=== PATIENT | female | born 2000 | race Caucasian/White ===

== ENCOUNTER 2024-01-09 16:12 | Observation (INO) | payer MEDICAID ==
[~2024-01-09] VITALS: Ht 157.5 cm; Wt 59.0 kg
[2024-01-09 16:20] VITALS: BP 113/61; PULSE 97; RESP 18; TEMP 98
[2024-01-09] MEDS ORDERED: PRETAB PO (17:14)
== END 2024-01-09 19:10 | disposition home or self-care (01) ==
LOC: MLD 16:12
PROVIDERS: ADMIT Obstetrics & Gynecology; ATTEND Obstetrics & Gynecology
DX: O46.93 Antepartum hemorrhage, unspecified, third trimester (principal); Z3A.29 29 weeks gestation of pregnancy
CPT/HCPCS: 76805; G0378; Q0092; 81000